=== PATIENT | female | born 1945 | race Caucasian/White ===

== ENCOUNTER → 2020-01-02 | Outpatient (CLI) | payer MEDICARE, OTHER ==
[~2020-01-02] VITALS: Ht 165.1 cm; Wt 92.5 kg
[~2020-01-02] MED LIST: AMBIEN 10MG10 MG PO; HAIRSKINNAILS PO; NAPROSYN 2250 MG/TAB PO; NORCO 325 MG-51 TAB PO; PHENTERMINE15 MG PO; PROBIOTIC ACID1 EAC3 PO; PROZAC 20MG20 MG PO; STOMACH ULCER MED; ULTRAM 50MG TAB50 MG PO; ZOLOFT 25MG25 MG PO
[2020-01-02 14:12] VITALS: BP 120/88; PULSE 76
== END ==
LOC: LIGHT 14:01
DX: Z68.33 Body mass index [BMI] 33.0-33.9, adult (principal); F32.9 Major depressive disorder, single episode, unspecified; G47.00 Insomnia, unspecified
CPT/HCPCS: G0463

== ENCOUNTER → 2020-01-30 | Outpatient (CLI) | payer MEDICARE, OTHER ==
[~2020-01-30] VITALS: Ht 165.1 cm; Wt 88.7 kg
[2020-01-30 10:28] VITALS: BP 136/80; PULSE 88
== END ==
LOC: LIGHT 10:08
DX: Z68.32 Body mass index [BMI] 32.0-32.9, adult (principal); G47.00 Insomnia, unspecified; F32.9 Major depressive disorder, single episode, unspecified
CPT/HCPCS: G0463

== ENCOUNTER → 2020-06-11 | Outpatient (CLI) | payer MEDICARE, OTHER ==
[~2020-06-11] VITALS: Ht 165.1 cm; Wt 86.6 kg
[~2020-06-11] MED LIST changes: +TOPAMAX 25MG25 M1 PO
[2020-06-11 09:42] VITALS: BP 134/92; PULSE 80
== END ==
LOC: LIGHT 09:36
DX: E66.8 Other obesity (principal); Z68.31 Body mass index [BMI] 31.0-31.9, adult; G47.00 Insomnia, unspecified; F32.9 Major depressive disorder, single episode, unspecified
CPT/HCPCS: G0463

== ENCOUNTER → 2020-07-09 | Outpatient (CLI) | payer MEDICARE, OTHER ==
[~2020-07-09] VITALS: Ht 165.1 cm; Wt 84.6 kg
[2020-07-09 14:44] VITALS: BP 110/74; PULSE 20
== END ==
LOC: LIGHT 11:25
DX: E66.8 Other obesity (principal); Z68.31 Body mass index [BMI] 31.0-31.9, adult; F32.9 Major depressive disorder, single episode, unspecified; G47.00 Insomnia, unspecified
CPT/HCPCS: G0463

== ENCOUNTER → 2020-09-03 | Outpatient (CLI) | payer MEDICARE, OTHER ==
[~2020-09-03] VITALS: Ht 165.1 cm; Wt 85.0 kg
[2020-09-03 10:38] VITALS: BP 126/82; PULSE 80
== END ==
LOC: LIGHT 10:23
DX: E66.8 Other obesity (principal); Z68.31 Body mass index [BMI] 31.0-31.9, adult; G47.00 Insomnia, unspecified
CPT/HCPCS: G0463